=== PATIENT | male | born 1950 | race Caucasian/White ===

== ENCOUNTER 2020-12-10 07:01 | Inpatient (IN) | payer MEDICARE ==
[~2020-12-10 07:01] MED LIST: Povidone-Iodine 10% Soln 118.25 ML Bottle ONE
[2020-12-10] MEDS ORDERED: Midazolam 1 MG/ML 2 ML SDV ONE (07:23)
[2020-12-10] MEDS ORDERED: Propofol 200 MG/20 ML SDV ONE ×3 (07:23→09:59)
[2020-12-10] MEDS ORDERED: fentaNYL 100 MCG/2 ML SDV ONE (07:23)
[2020-12-10] MEDS ORDERED: Lactated Ringers 1,000 ML IV SCH (07:30)
[2020-12-10] MEDS ORDERED: ceFAZolin 2 GM in Premix Bag 1 BAG IV ONE (07:30)
[2020-12-10] MEDS: Nozin Nasal Sanitizer NASBOTH SCH ×2 (07:42→20:24)
[2020-12-10] MEDS ORDERED: Ondansetron 4 MG/2 ML SDV IVPUSH PRN (10:27)
[2020-12-10] MEDS ORDERED: Morphine 2 MG/ML SYRINGE IVPUSH PRN (10:27)
[2020-12-10] MEDS ORDERED: Acetaminophen/HYDROcodone 325-5 MG Tab PO PRN (10:27)
[2020-12-10] MEDS ORDERED: Acetaminophen 325 MG Tab PO PRN (10:27)
[2020-12-10] MEDS ORDERED: Montelukast 10 MG Tab PO PRN (10:32)
[2020-12-10] MEDS ORDERED: BUDESONIDE 3 MG PO PRN (10:32)
[2020-12-10] MEDS: Ketorolac 30 MG/ML SDV IVPUSH PRN (11:10)
[2020-12-10] MEDS: Acetaminophen/oxyCODONE 325-5 MG Tab PO PRN ×3 (11:46→20:32)
[2020-12-10] MEDS: Sodium Chloride 0.9% 1,000 ML IV SCH ×2 (12:43→20:35)
--- NOTE | 2020-12-10 14:05 | CRLCR ---
For Patients: As a result of the Cures Act, medical imaging exams and procedure reports are released immediately into your electronic medical record. You may view this report before your referring provider. If you have questions, please contact your health care provider. INDICATION: Post operative right total knee arthroplasty TECHNIQUE: Knee radiograph 2 views right COMPARISON: None FINDINGS: Bone: No acute fractures or aggressive bone lesions are identified. Joint: The patient is status post a total knee arthroplasty with patellar resurfacing. No radiographic evidence of asymmetric polyethylene wear, prosthetic loosening or infection is seen. No significant knee effusion is seen. Soft tissue: Anterior skin, subcutaneous gas and joint gas are present from recent surgery. No radiopaque foreign bodies are seen. IMPRESSION: 1. There is an unremarkable postoperative appearance of the knee arthroplasty. Dictated by: Calvin Ahumada MD @ 12/10/2020 14:05:05 (Electronically Signed)
[2020-12-10] MEDS: ceFAZolin 1 GM in Premix Bag 1 BAG IV SCH (15:06)
[2020-12-10] MEDS ORDERED: Cyclobenzaprine 10 MG Tab PO PRN (16:22)
[2020-12-10] MEDS: Docusate Sodium 100 MG Cap PO SCH (20:26)
[2020-12-10] MEDS ORDERED: Nozin Nasal Sanitizer NASBOTH SCH (21:00)
[2020-12-11] MEDS: ceFAZolin 1 GM in Premix Bag 1 BAG IV SCH ×2 (00:15→07:33)
[2020-12-11] MEDS: Acetaminophen/oxyCODONE 325-5 MG Tab PO PRN ×3 (00:22→19:14)
[2020-12-11] MEDS: Ketorolac 30 MG/ML SDV IVPUSH PRN (00:22)
[2020-12-11] MEDS: Sodium Chloride 0.9% 1,000 ML IV SCH (04:37)
[2020-12-11] MEDS ORDERED: Levothyroxine 25 MCG Tab PO SCH (07:30)
[2020-12-11] MEDS: Docusate Sodium 100 MG Cap PO SCH ×2 (08:01→20:26)
[2020-12-11] MEDS: Nozin Nasal Sanitizer NASBOTH SCH ×2 (08:04→22:48)
--- NOTE | 2020-12-11 08:08 | PCM.SURGPN ---
- General Info Date of Service: 12/11/20 Date of Surgery/Procedure: 12/10/20 POD#: 1 Post-Op Diagnosis: right knee osteoarthritis Admission Diagnosis/Problem: Knee joint operation Functional Status: Reports: Pain Controlled, Tolerating Diet, Ambulating, Urinating - Review of Systems General: Denies: Fever, Fatigue, Chills HEENT: Denies: Visual Changes Pulmonary: Denies: Shortness of Breath Cardiovascular: Denies: Chest Pain, Palpitations Gastrointestinal: Denies: Nausea, Vomiting Genitourinary: Denies: Dysuria Musculoskeletal: Reports: Leg Pain (right ), Joint Swelling (right knee ) Neurological: Reports: No Symptoms Psychiatric: Reports: No Symptoms - Patient Data Vitals - Most Recent: Last Vital Signs Temp 97.4 F 12/11/20 00:48 Pulse 74 12/11/20 00:48 Resp 18 12/11/20 00:48 BP 167/70 H 12/11/20 00:48 Pulse Ox 98 12/11/20 00:48 Weight - Most Recent: 238 lb I&O - Last 24 Hours: Intake & Output 12/10/20 12/11/20 12/11/20 22:59 06:59 14:59 Intake Total 2264 Output Total 90 Balance -90 2264 Lab Results Last 24 Hrs: Laboratory Results - last 24 hr 12/10/20 12/11/20 Range/Units 07:03 05:14 WBC 5.6 (4.5-11.0) K/uL RBC 3.64 L (4.30-5.90) M/uL Hgb 12.3 (12.0-15.0) g/dL Hct 37.7 L (40.0-54.0) % MCV 104 H (80-98) fL MCH 34 H (27-31) pg MCHC 33 (32-36) % Plt Count 168 (150-400) K/uL SARS-CoV-2 RNA ([place]) Negative (NEGATIVE) Med Orders - Current: Current Medications Acetaminophen (Acetaminophen 325 Mg Tab) 650 mg PO Q4H PRN PRN Reason: Pain/Fever Hydrocodone Bitart/Acetaminophen (Acetaminophen/Hydrocodone 325-5 Mg Tab) 1 tab PO Q4H PRN PRN Reason: Pain (mild 1-3) Bandage/Support Products (Nozin Nasal E M Assembler) 1 applic NASBOTH BID [facility] Stop: 12/16/20 21:01 Last Admin: 12/10/20 20:24 Dose: 1 applic Documented by: Cyclobenzaprine HCl (Cyclobenzaprine 10 Mg Tab) 5 mg PO Q8H PRN PRN Reason: Spasms Last Admin: 12/10/20 16:52 Dose: 5 mg Documented by: Docusate Sodium (Docusate Sodium 100 Mg Cap) 100 mg PO BID [facility] Last Admin: 12/10/20 20:26 Dose: 100 mg Documented by: Enoxaparin Sodium (Enoxaparin 30 Mg/0.3 Ml Syringe) 30 mg SUBCUT DAILY [facility] Sodium Chloride (Normal Saline) 1,000 mls @ 125 mls/hr IV ASDIRECTED [facility] Last Admin: 12/11/20 04:37 Dose: 125 mls/hr Documented by: Cefazolin Sodium/Dextrose 1 gm (/ Premix) 50 mls @ 200 mls/hr IV Q8H [facility] Stop: 12/11/20 08:14 Last Admin: 12/11/20 07:33 Dose: 200 mls/hr Documented by: Ketorolac Tromethamine (Ketorolac 30 Mg/Ml Sdv) 15 mg IVPUSH Q8H PRN PRN Reason: Breakthrough Pain Last Admin: 12/11/20 00:22 Dose: 15 mg Documented by: Levothyroxine Sodium (Levothyroxine 25 Mcg Tab) 75 mcg PO ACBREAKFAST [facility] Last Admin: 12/11/20 07:33 Dose: 75 mcg Documented by: Montelukast Sodium (Montelukast 10 Mg Tab) 10 mg PO DAILY PRN PRN Reason: Other Morphine Sulfate (Morphine 2 Mg/Ml Syringe) 1 mg IVPUSH Q1H PRN PRN Reason: Breakthrough Pain Non-Formulary Medication (Budesonide [Entocort Ec]) 3 mg PO DAILY PRN PRN Reason: Other [Symbicort 160-4.5 (Mcg Inh* Ptom) 0 puff INH BIDRT [facility] Last Admin: 12/11/20 07:38 Dose: 2 puff Documented by: Ondansetron HCl (Ondansetron 4 Mg/2 Ml Sdv) 4 mg IVPUSH Q4H PRN PRN Reason: Nausea/Vomiting Last Admin: 12/10/20 15:53 Dose: 4 mg Documented by: Oxycodone/Acetaminophen (Acetaminophen/Oxycodone 325-5 Mg Tab) 1 - 2 tab PO Q4H PRN PRN Reason: Pain Last Admin: 12/11/20 00:22 Dose: 2 tab Documented by: Pravastatin Sodium (Pravastatin 20 Mg Tab) 40 mg PO DAILY [facility] Triamterene/Hydrochlorothiazide (Hydrochlorothiazide/Triamterene 25-37.5 Tab) 1.5 each PO DAILY [facility] Discontinued Medications Fentanyl (Fentanyl 100 Mcg/2 Ml Sdv) Confirm Administered Dose 100 mcg .ROUTE .STK-MED ONE Stop: 12/10/20 07:24 Cefazolin Sodium/Dextrose 2 gm (/ Premix) 50 mls @ 100 mls/hr IV ONETIME ONE Stop: 12/10/20 07:59 Last Admin: 12/10/20 08:24 Dose: 100 mls/hr Documented by: Lactated Ringer's (Ringers, Lactated) 1,000 mls @ 75 mls/hr IV ASDIRECTED [facility] Last Admin: 12/10/20 08:02 Dose: 75 mls/hr Documented by: Midazolam HCl (Midazolam 1 Mg/Ml 2 Ml Sdv) Confirm Administered Dose 2 mg .ROUTE .STK-MED ONE Stop: 12/10/20 07:24 Povidone Iodine (Povidone-Iodine 10% Soln 118.25 Ml Bottle) Confirm Administered Dose 1 ml .ROUTE .STK-MED ONE Stop: 12/10/20 06:55 Last Admin: 12/10/20 09:27 Dose: 30 ml Documented by: Propofol (Propofol 200 Mg/20 Ml Sdv) Confirm Administered Dose 200 mg .ROUTE .STK-MED ONE Stop: 12/10/20 07:24 Propofol (Propofol 200 Mg/20 Ml Sdv) Confirm Administered Dose 200 mg .ROUTE .STK-MED ONE Stop: 12/10/20 08:28 Propofol (Propofol 200 Mg/20 Ml Sdv) Confirm Administered Dose 200 mg .ROUTE .STK-MED ONE Stop: 12/10/20 10:00 - Exam Wound/Incisions: Healing Well, Dressing Dry and Intact, No Drainage Quality Assessment: DVT Prophylaxis General: Alert, Oriented, Cooperative, No Acute Distress Extremities: Pedal Edema, Leg Pain (right ), Limited Range of Motion (of right knee due to postoperative dressing, swelling, and pain in right knee ). No: Tran's Sign Skin: Warm, Dry, Intact Psy/Mental Status: Alert, Normal Affect, Normal Mood Sepsis Event Note - Evaluation Sepsis Screening Result: No Definite Risk - Focused Exam Vital Signs: Vital Signs Temp Pulse Resp BP Pulse Ox 12/11/20 00:48 97.4 F 74 18 167/70 H 98 12/10/20 20:19 96.7 F L 65 18 152/65 H 96 - Problem List & Annotations (1) Status post right knee replacement SNOMED Code(s): 4978714631301, 883409610, 5492431744592 Code(s): Z96.651 - PRESENCE OF RIGHT ARTIFICIAL KNEE JOINT Status: Acute Current Visit: Yes - Problem List Review Problem List Initiated/Reviewed/Updated: Yes - My Orders Last 24 Hours: Active Orders 24 hr Category Date Time Status Patient Status [ADT] Routine ADT 12/10/20 10:27 Active Ambulate [RC] QID Care 12/10/20 10:27 Active Antiembolic Devices [RC] .Routine Care 12/10/20 10:27 Active Head of Bed Elevation [RC] ASDIRECTED Care 12/10/20 10:27 Active Intake and Output [RC] QSHIFT Care 12/10/20 10:27 Active May Shower [RC] ASDIRECTED Care 12/10/20 10:27 Active Neurovascular Check [RC] Q4H Care 12/10/20 10:27 Active Notify Provider Vital Signs [RC] ASDIRECTED Care 12/10/20 10:27 Active Oxygen Therapy [RC] PRN Care 12/10/20 10:27 Active Pneumonia Education [RC] UPON Care 12/10/20 10:27 Active RT Incentive Spirometry [RC] Q1HWA Care 12/10/20 10:27 Active Remove Urinary Catheter [Urinary Catheter Removal] [RC] Care 12/10/20 17:00 Active PER UNIT ROUTINE Up to Chair [RC] QID Care 12/10/20 10:27 Active VTE/DVT Education [RC] Click to Edit Care 12/10/20 10:27 Active Wound Care [RC] Q12H Care 12/10/20 10:27 Active Consult to Case Management/Hydrogen Plant Operations Manager [CONS] Cons 12/10/20 10:27 Active Routine OT Evaluation and Treatment [CONS] Routine Cons 12/10/20 10:27 Active PT Evaluation and Treatment [CONS] Routine Cons 12/10/20 10:27 Active PT Evaluation and Treatment [CONS] Routine Cons 12/10/20 10:27 Active Regular Diet [DIET] Diet 12/10/20 Lunch Active Acetaminophen [TylenoL] Med 12/10/20 10:27 Active 650 mg PO Q4H PRN Acetaminophen/HYDROcodone [Latta 325-5 MG] Med 12/10/20 10:27 Active 1 tab PO Q4H PRN Acetaminophen/oxyCODONE [Percocet 325-5 MG] Med 12/10/20 10:27 Active 1 - 2 tab PO Q4H PRN Budesonide [Entocort EC] Med 12/10/20 10:32 Active 3 mg PO DAILY PRN Budesonide/Formoterol Fumarate [Symbicort 160-4.5 Mcg Med 12/10/20 21:00 Active Inhaler] 0 puff INH BIDRT Cyclobenzaprine [Flexeril] Med 12/10/20 16:22 Active 5 mg PO Q8H PRN Docusate Sodium [Colace] Med 12/10/20 21:00 Active 100 mg PO BID Enoxaparin [Lovenox] Med 12/11/20 09:00 Active 30 mg SUBCUT DAILY HCTZ/Triamterene [Maxzide 25-37.5 MG] Med 12/11/20 09:00 Active 1.5 each PO DAILY Ketorolac [Toradol] Med 12/10/20 10:27 Active 15 mg IVPUSH Q8H PRN Levothyroxine Med 12/11/20 07:30 Active 75 mcg PO ACBREAKFAST Montelukast [Singulair] Med 12/10/20 10:32 Active 10 mg PO DAILY PRN Morphine Med 12/10/20 10:27 Active 1 mg IVPUSH Q1H PRN Nozin [ Nasal E M Assembler] Med 12/10/20 07:30 Active 1 applic NASBOTH BID Ondansetron [Zofran] Med 12/10/20 10:27 Active 4 mg IVPUSH Q4H PRN Pravastatin [Pravachol] Med 12/11/20 09:00 Active 40 mg PO DAILY Sodium Chloride 0.9% [Normal Saline] 1,000 ml Med 12/10/20 10:30 Active IV ASDIRECTED ceFAZolin [Ancef 1 GM/50 ML] 1 gm Med 12/10/20 16:00 Active Premix Bag 1 bag IV Q8H Antiembolic Hose [OM.PC] Routine Oth 12/10/20 10:27 Ordered DVT/VTE Prophylaxis Reflex [OM.PC] Routine Oth 12/10/20 10:27 Ordered Ice Therapy [OM.PC] Per Unit Routine Oth 12/10/20 10:27 Ordered Medication Continuation Instructions [OM.PC] Per Unit Oth 12/10/20 10:27 Ordered Routine Oral Care [OM.PC] Routine Oth 12/10/20 10:27 Ordered Sequential Compression Device [OM.PC] Routine Oth 12/10/20 10:27 Ordered Weight bearing status [OM.PC] Routine Oth 12/10/20 10:33 Ordered Resuscitation Status Routine Resus Stat 12/10/20 10:27 Ordered Medication Orders Acetaminophen (Acetaminophen 325 Mg Tab) 650 mg PO Q4H PRN PRN Reason: Pain/Fever Hydrocodone Bitart/Acetaminophen (Acetaminophen/Hydrocodone 325-5 Mg Tab) 1 tab PO Q4H PRN PRN Reason: Pain (mild 1-3) Bandage/Support Products (Nozin Nasal E M Assembler) 1 applic NASBOTH BID [facility] Stop: 12/16/20 21:01 Last Admin: 12/10/20 20:24 Dose: 1 applic Documented by: Admin: 12/10/20 07:42 Dose: 1 applic Documented by: GODWIN Cyclobenzaprine HCl (Cyclobenzaprine 10 Mg Tab) 5 mg PO Q8H PRN PRN Reason: Spasms Last Admin: 12/10/20 16:52 Dose: 5 mg Documented by: KRISTY Docusate Sodium (Docusate Sodium 100 Mg Cap) 100 mg PO BID [facility] Last Admin: 12/10/20 20:26 Dose: 100 mg Documented by: CHERISE Enoxaparin Sodium (Enoxaparin 30 Mg/0.3 Ml Syringe) 30 mg SUBCUT DAILY [facility] Sodium Chloride (Normal Saline) 1,000 mls @ 125 mls/hr IV ASDIRECTED [facility] Last Admin: 12/11/20 04:37 Dose: 125 mls/hr Documented by: Infusion: 12/11/20 04:35 Dose: 125 mls/hr Documented by: Admin: 12/10/20 20:35 Dose: 125 mls/hr Documented by: Infusion: 12/10/20 20:35 Dose: 125 mls/hr Documented by: Admin: 12/10/20 12:43 Dose: 125 mls/hr Documented by: PATRICA Cefazolin Sodium/Dextrose 1 gm (/ Premix) 50 mls @ 200 mls/hr IV Q8H [facility] Stop: 12/11/20 08:14 Last Admin: 12/11/20 07:33 Dose: 200 mls/hr Documented by: Infusion: 12/11/20 00:30 Dose: 200 mls/hr Documented by: Admin: 12/11/20 00:15 Dose: 200 mls/hr Documented by: Infusion: 12/10/20 15:21 Dose: 200 mls/hr Documented by: Admin: 12/10/20 15:06 Dose: 200 mls/hr Documented by: KRISTY Ketorolac Tromethamine (Ketorolac 30 Mg/Ml Sdv) 15 mg IVPUSH Q8H PRN PRN Reason: Breakthrough Pain Last Admin: 12/11/20 00:22 Dose: 15 mg Documented by: Admin: 12/10/20 11:10 Dose: 15 mg Documented by: KRISTY Levothyroxine Sodium (Levothyroxine 25 Mcg Tab) 75 mcg PO ACBREAKFAST [facility] Last Admin: 12/11/20 07:33 Dose: 75 mcg Documented by: MARCELO Montelukast Sodium (Montelukast 10 Mg Tab) 10 mg PO DAILY PRN PRN Reason: Other Morphine Sulfate (Morphine 2 Mg/Ml Syringe) 1 mg IVPUSH Q1H PRN PRN Reason: Breakthrough Pain Non-Formulary Medication (Budesonide [Entocort Ec]) 3 mg PO DAILY PRN PRN Reason: Other [Symbicort 160-4.5 (Mcg Inh* Ptom) 0 puff INH BIDRT [facility] Last Admin: 12/11/20 07:38 Dose: 2 puff Documented by: Admin: 12/10/20 20:25 Dose: 2 puff Documented by: CHERISE Ondansetron HCl (Ondansetron 4 Mg/2 Ml Sdv) 4 mg IVPUSH Q4H PRN PRN Reason: Nausea/Vomiting Last Admin: 12/10/20 15:53 Dose: 4 mg Documented by: KRISTY Oxycodone/Acetaminophen (Acetaminophen/Oxycodone 325-5 Mg Tab) 1 - 2 tab PO Q4H PRN PRN Reason: Pain Last Admin: 12/11/20 00:22 Dose: 2 tab Documented by: Admin: 12/10/20 20:32 Dose: 2 tab Documented by: Admin: 12/10/20 15:52 Dose: 2 tab Documented by: Admin: 12/10/20 11:46 Dose: 2 tab Documented by: KRISTY Pravastatin Sodium (Pravastatin 20 Mg Tab) 40 mg PO DAILY [facility] Triamterene/Hydrochlorothiazide (Hydrochlorothiazide/Triamterene 25-37.5 Tab) 1.5 each PO DAILY [facility] - Assessment Assessment (Free Text/Narrative):: Patient is a pleasant 70-year-old male, status post right total knee arthroplasty, postop day #1. Patient tolerated surgery very well with no complications. No acute events overnight. Patient had one episode of orthostatic hypotension following surgery yesterday when standing with physical therapy. Patient became lightheaded and nauseous; physical therapist assisted patient back into bed and symptoms resolved with improvements in blood pressure. Since this episode, patient has been hypertensive. Has not taken antihypertensive medications since prior to surgery. Patient denied any further episodes of lightheadedness. Also denied any further nausea or emesis. All other vitals are within normal limits. Patient denied subjective fever, chills, shortness of breath, chest pain, nor palpitations this morning. POD#1 HgB was within normal limits at 12.3. Pain has been well controlled thus far with PO Percocet and IV Toradol for breakthrough pain. Patient endorsed he slept through most of the night without disruption from right knee pain. Patient has been tolerating regular diet well without nausea or emesis. Worked with physical therapy yesterday, transferred from bed to chair. Ambulated within room with FWW and x1 assist to bathroom twice. Ambulation distance limited yesterday due to orthostatic hypotensive episode, but notes pain was fairly well controlled with weight bearing. Had complained of quadriceps musculoskeletal spasms following PT session; Flexeril was administered and intensity of spasms reduced. Denied paresthesias to RLE. Denied calf pain. Did have scant amount of blood in urine catheter following surgery. His olivas catheter was removed yesterday afternoon. Patient denied any dysuria. No h ematuria noted with urination since catheter was removed. Plan: * Continue with PT and OT services daily while in the hospital to progress functional mobility of right lower extremity. * Continue with current pain regimen; will need to have pain controlled with oral medications for discharge to home. * Continue with 30 mg Lovenox subcutaneous daily for chemical DVT/VTE p rophylaxis and bilateral LE SCDs for mechanical prophylaxis. Will transition to Aspirin therapy upon discharge. * Discontinue IV maintenance fluids. * Continue to monitor vitals q4 hrs. Resume home antihypertensive medications. * Anticipate dressing change this afternoon or POD#2 by orthopedic provider, pending when patient will discharge. * Anticipate discharge to home when medically stable and functional mobility of RLE improves. Outpatient PT to be arranged upon discharge.
[2020-12-11] MEDS ORDERED: Enoxaparin 30 MG/0.3 ML Syringe SUBCUT SCH (09:00)
[2020-12-11] MEDS ORDERED: Hydrochlorothiazide/Triamterene 25-37.5 Tab PO SCH (09:00)
[2020-12-11] MEDS ORDERED: Pravastatin 20 MG Tab PO SCH (09:00)
[2020-12-12] MEDS: Acetaminophen/oxyCODONE 325-5 MG Tab PO PRN ×2 (03:19→07:19)
--- NOTE | 2020-12-12 07:35 | PCM.DCSUM1 ---
Discharge Summary - Hospital Course Brief History: Kevin 70 y/o male with history of chronic right knee pain, symptoms refractory to conservative management, elected to undergo right total knee arthroplasty. Underwent surgery on 12/10/20. Tolerated surgery well with no complications. No acute events during hospitalization. Diagnosis: Stroke: No Modified Luis Scale: No Symptoms at All Modified Luis Scale Score: 0 - Discharge Data Discharge Date: 12/12/20 Discharge Disposition: Home, Self-Care 01 Condition: Good - Referral to Home Health Date of Face to Face Encounter: 12/12/20 Reason for Homebound Status: motivated to go home, independent with ADLs, ambulatory with walker Primary Care Physician: PCP Unknown - Discharge Diagnosis/Problem(s) (1) Status post right knee replacement SNOMED Code(s): 8886226289359, [id number], [id number] ICD Code: Z96.651 - PRESENCE OF RIGHT ARTIFICIAL KNEE JOINT Status: Acute Current Visit: Yes - Patient Summary/Data Operative Procedure(s) Performed: right knee total arthroplasty Consults: Consultations 12/10/20 10:27 Consult to Case Management/Graphic Engineer [CONS] Routine Comment: Physician Instructions: Service(s) to be Consulted: Case Management Reason for Consult: Plan for Discharge Special Instructions: anticipate d/c to home with outpatient PT. Patient requesting outpatient PT with Iss OT Evaluation and Treatment [CONS] Routine Please Evaluate and Treat. OT Reason for Consult: ADL's Special Instructions: s/p RTKA WBAT, assist with leg equipment service engineer/adaptive equipment as needed for ADLS This query below is only for informational purposes and is not editable. PT Evaluation and Treatment [CONS] Routine Please Evaluate and Treat. PT Reason for Consult: Post op Ortho Surgery Special Instructions: s/p R TKA. WBAT. progress motion and strengthening to R LE as tolerated This query below is only for informational purposes and is not editable. PT Evaluation and Treatment [CONS] Routine Please Evaluate and Treat. PT Reason for Consult: Post op Ortho Surgery Knee Pending Discharge: Yes, 1- 2 days Special Instructions: Schedule first outpatient PT appointment in 3-5 day post discharge. Patient has requested [facility] for therapist This query below is only for informational purposes and is not editable. Hospital Course: Patient is a kevin 70 y/o male, status post right total knee arthroplasty, DOS: 12/10/20. Patient tolerated surgery well with no complications. Patient had no acute events during hospitalization. POD#1 HgB within normal limits at 12.3. Patient had an isolated orthostatic hypotensive episode, followed by intermittent hypertensive readings. Home antihypertensive medications resumed on POD#1 and blood pressures improved. Has otherwise remained hemodynamically stable throughout stay. Patient worked with PT and OT daily throughout hospital stay. Did have an episode of orthostatic hypotension the afternoon of surgery upon standing with physical therapy. Aside from this isolated incident, patient ambulated without lightheadedness or dizziness. Denied subjective fevers, chills, chest pain, palpitations, nor dyspnea throughout stay. Patient progressed nicely with ambulation abilities, walking up to 115 feet with FWW and SBA. Able to use leg equipment service engineer and independently transfer out of bed to chair. Demonstrated independence with ADLs. Pain has been well controlled with oral Percocet. Denied nausea or emesis with this medication. Has tolerated regular diet well. Did have quadriceps spasms the evening of surgery, prn flexeril was utilized. Has denied any further muscle spasms. Denied paresthesias to right lower extremity. Denied calf pain. Did have scant amount of blood in catheter the evening of surgery. Catheter was removed that evening. Patient denied dysuria, but did have mild hematuria throughout POD#1. IV maintenance fluids were discontinued on POD#1. Dressing changed on POD#1 and #2. Was on 30 mg Lovenox subcutaneous daily for chemical DVT/VTE prophylaxis w [facility] inpatient. Patient demonstrated improved functional mobility of right lower extremity throughout stay and was medically stable at time of discharge. - Patient Instructions Diet: Usual Diet as Tolerated Activity: Apply Ice, Full Weight Bearing Driving: Do Not Drive Showering/Bathing: May Shower Wound/Incision Care: Keep Operative Site/Wound Site Clean and Dry Notify Provider of: Fever, Increased Pain, Swelling and Redness, Drainage - Discharge Plan *PRESCRIPTION DRUG MONITORING PROGRAM REVIEWED*: Yes *COPY OF PRESCRIPTION DRUG MONITORING REPORT IN PATIENT GEO: Not Applicable Prescriptions/Med Rec: Acetaminophen/oxyCODONE [Percocet 325-5 MG] 1 - 2 each PO Q6H PRN #40 tab PRN Reason: Pain Home Medications: Home Meds Budesonide [Entocort EC] 3 mg PO DAILY PRN 11/24/20 [History] HCTZ/Triamterene [Maxzide 25-37.5 MG] 1.5 tab PO DAILY 11/24/20 [History] Levothyroxine Sodium [Synthroid] 75 mcg PO ACBREAKFAST 11/24/20 [History] Montelukast [Singulair] 10 mg PO DAILY PRN 11/24/20 [History] Pravastatin [Pravachol] 40 mg PO DAILY 11/24/20 [History] Budesonide/Formoterol Fumarate [Symbicort 160-4.5 Mcg Inhaler] 2 puff INH BID 11/25/20 [History] Acetaminophen/oxyCODONE [Percocet 325-5 MG] 1 - 2 each PO Q6H PRN #40 tab 12/12/20 [Rx] Oxygen Therapy Mode: Room Air Referrals: Balaji Lezama PA [Ordering Only Provider] - 12/23/20 11:00 am (Please arrive 15 minutes early to register for your appointment.) Mallory Moran, PT [Physical Therapist] - 12/15/20 2:00 pm (Please arrive 15 minutes early to register for your appointment.) - Discharge Summary/Plan Comment DC Time >30 min.: No Total # of Minutes for Discharge Time: 20 Discharge Summary/Plan Comment: -Discharge to home today with outpatient physical therapy. -Prescription sent for pain control: 5mg-325mg Percocet, 1-2 tabs PO q6 hrs prn for pain. -Encouraged continuation of stool softener while on opioid pain medication. -Educated on warning signs of DVT/VTE and SSI; any concerns, should contact the clinic or visit local ER. -Educated to take 1 aspirin (81 mg or 325 mg) BID for DVT/VTE prophylaxis. -Continue with Nozin spray BID. -Encouraged to monitor blood pressure at home; if readings are elevated, should follow up with his PCP. -May shower; leave Steristrips on and let water run over the top. They will fall off in 5-7 days. Do not vigorously scrub incision, no submerging incision in bath water. Do not need to place dressing over incision, but may choose to do so if Steristrips are catching on clothing. -Follow up with orthopedics in 2 weeks; contact clinic with any concerns or questions that arise prior to scheduled apt. - General Info Date of Service: 12/12/20 Admission Dx/Problem (Free Text: right knee joint operation Functional Status: Reports: Pain Controlled, Tolerating Diet, Ambulating (with FWW ), Urinating - Review of Systems General: Denies: Fever, Fatigue, Malaise, Chills Pulmonary: Denies: Shortness of Breath Cardiovascular: Denies: Chest Pain, Palpitations Gastrointestinal: Denies: Nausea, Vomiting Genitourinary: Denies: Dysuria Musculoskeletal: Reports: Leg Pain (right ), Joint Pain (right knee ), Joint Swelling (right knee ) Skin: Reports: Bruising Neurological: Reports: No Symptoms Psychiatric: Reports: No Symptoms - Patient Data Vitals - Most Recent: Last Vital Signs Temp 96.3 F L 12/12/20 03:18 Pulse 60 12/12/20 03:18 Resp 16 12/12/20 03:18 BP 138/48 L 12/12/20 03:18 Pulse Ox 97 12/12/20 03:18 Weight - Most Recent: 238 lb I&O - Last 24 hours: Intake & Output 12/11/20 12/12/20 12/12/20 22:59 06:59 14:59 Output Total 500 Balance -500 Med Orders - Current: Current Medications Acetaminophen (Acetaminophen 325 Mg Tab) 650 mg PO Q4H PRN PRN Reason: Pain/Fever Hydrocodone Bitart/Acetaminophen (Acetaminophen/Hydrocodone 325-5 Mg Tab) 1 tab PO Q4H PRN PRN Reason: Pain (mild 1-3) Bandage/Support Products (Nozin Nasal Corporate Sales Trainer) 1 applic NASBOTH BID [facility] Stop: 12/16/20 21:01 Last Admin: 12/11/20 22:48 Dose: 1 applic Documented by: Cyclobenzaprine HCl (Cyclobenzaprine 10 Mg Tab) 5 mg PO Q8H PRN PRN Reason: Spasms Last Admin: 12/10/20 16:52 Dose: 5 mg Documented by: Docusate Sodium (Docusate Sodium 100 Mg Cap) 100 mg PO BID [facility] Last Admin: 12/11/20 20:26 Dose: 100 mg Documented by: Enoxaparin Sodium (Enoxaparin 30 Mg/0.3 Ml Syringe) 30 mg SUBCUT DAILY [facility] Last Admin: 12/11/20 08:01 Dose: 30 mg Documented by: Sodium Chloride (Normal Saline) 1,000 mls @ 125 mls/hr IV ASDIRECTED [facility] Last Admin: 12/11/20 04:37 Dose: 125 mls/hr Documented by: Ketorolac Tromethamine (Ketorolac 30 Mg/Ml Sdv) 15 mg IVPUSH Q8H PRN PRN Reason: Breakthrough Pain Last Admin: 12/11/20 00:22 Dose: 15 mg Documented by: Levothyroxine Sodium (Levothyroxine 25 Mcg Tab) 75 mcg PO ACBREAKFAST [facility] Last Admin: 12/11/20 07:33 Dose: 75 mcg Documented by: Montelukast Sodium (Montelukast 10 Mg Tab) 10 mg PO DAILY PRN PRN Reason: Other Morphine Sulfate (Morphine 2 Mg/Ml Syringe) 1 mg IVPUSH Q1H PRN PRN Reason: Breakthrough Pain Non-Formulary Medication (Budesonide [Entocort Ec]) 3 mg PO DAILY PRN PRN Reason: Other [Symbicort 160-4.5 (Mcg Inh* Ptom) 0 puff INH BIDRT [facility] Last Admin: 12/12/20 07:20 Dose: 2 puff Documented by: Ondansetron HCl (Ondansetron 4 Mg/2 Ml Sdv) 4 mg IVPUSH Q4H PRN PRN Reason: Nausea/Vomiting Last Admin: 12/10/20 15:53 Dose: 4 mg Documented by: Oxycodone/Acetaminophen (Acetaminophen/Oxycodone 325-5 Mg Tab) 1 - 2 tab PO Q4H PRN PRN Reason: Pain Last Admin: 12/12/20 07:19 Dose: 2 tab Documented by: Pravastatin Sodium (Pravastatin 20 Mg Tab) 40 mg PO DAILY [facility] Last Admin: 12/11/20 08:01 Dose: 40 mg Documented by: Triamterene/Hydrochlorothiazide (Hydrochlorothiazide/Triamterene 25-37.5 Tab) 1.5 each PO DAILY [facility] Last Admin: 12/11/20 08:01 Dose: 1.5 each Documented by: Discontinued Medications Fentanyl (Fentanyl 100 Mcg/2 Ml Sdv) Confirm Administered Dose 100 mcg .ROUTE .STK-MED ONE Stop: 12/10/20 07:24 Cefazolin Sodium/Dextrose 2 gm (/ Premix) 50 mls @ 100 mls/hr IV ONETIME ONE Stop: 12/10/20 07:59 Last Admin: 12/10/20 08:24 Dose: 100 mls/hr Documented by: Lactated Ringer's (Ringers, Lactated) 1,000 mls @ 75 mls/hr IV ASDIRECTED [facility] Last Admin: 12/10/20 08:02 Dose: 75 mls/hr Documented by: Cefazolin Sodium/Dextrose 1 gm (/ Premix) 50 mls @ 200 mls/hr IV Q8H [facility] Stop: 12/11/20 08:14 Last Admin: 12/11/20 07:33 Dose: 200 mls/hr Documented by: Midazolam HCl (Midazolam 1 Mg/Ml 2 Ml Sdv) Confirm Administered Dose 2 mg .ROUTE .STK-MED ONE Stop: 12/10/20 07:24 Povidone Iodine (Povidone-Iodine 10% Soln 118.25 Ml Bottle) Confirm Administered Dose 1 ml .ROUTE .STK-MED ONE Stop: 12/10/20 06:55 Last Admin: 12/10/20 09:27 Dose: 30 ml Documented by: Propofol (Propofol 200 Mg/20 Ml Sdv) Confirm Administered Dose 200 mg .ROUTE .STK-MED ONE Stop: 12/10/20 07:24 Propofol (Propofol 200 Mg/20 Ml Sdv) Confirm Administered Dose 200 mg .ROUTE .STK-MED ONE Stop: 12/10/20 08:28 Propofol (Propofol 200 Mg/20 Ml Sdv) Confirm Administered Dose 200 mg .ROUTE .STK-MED ONE Stop: 12/10/20 10:00 - Exam Quality Assessment: Reports: DVT Prophylaxis General: Reports: Alert, Oriented, Cooperative, No Acute Distress Extremities: Normal Capillary Refill, Pedal Edema, Joint Swelling (right knee ), Leg Pain (right ), Limited Range of Motion (at right knee from postoperative swelling and pain ), Other (tibial pulse, 2+. Dorsiflexion: 4+/5. Plantar flexion: 5/5. ). No: Tran's Sign Skin: Reports: Dry, Intact, Ecchymosis Wound/Incisions: Reports: Healing Well, Dressing Dry and Intact, No Drainage, Other (Incision approximated, steristrips with dried drainage intact above. No surrounding erythema nor active drainage. ) Neurological: Reports: No New Focal Deficit Psy/Mental Status: Reports: Alert, Normal Affect, Normal Mood
--- NOTE | 2020-12-18 12:14 | OR ---
DATE OF PROCEDURE: 12/10/2020 SURGEON: Suman Gorman MD PREOPERATIVE DIAGNOSIS: Osteoarthritis, right knee. POSTOPERATIVE DIAGNOSIS: Severe osteoarthritis, right knee. PROCEDURE: Right total knee arthroplasty utilizing Esthela Persona components with a size 10 femur, G tibia, 11 mm polyethylene, and 38 mm patella. TURNAROUND ENGINEER: RIGOBERTO Mosley ANESTHESIA: Spinal with sedation. INDICATIONS: Lavell is a pleasant 70-year-old gentleman with history of progressive pain in his right knee for the past year. Examination and imaging are consistent with severe osteoarthritis with complete joint space collapse medially. He now presents for right total knee arthroplasty. Risks, benefits, potential complications of the procedure were discussed. PROCEDURE IN DETAIL: After adequate anesthesia was obtained, the patient was placed supine with a tourniquet about the right upper thigh. Right leg was prepped and draped in a sterile fashion. Leg was exsanguinated and tourniquet inflated to 300 mmHg pressure. A midline incision was made and carried down through the subcutaneous tissues. A medial parapatellar arthrotomy was performed. A moderate effusion is present. Portion of the fat pad and synovium was excised for better visualization. The capsule was released medially. Patella was partially everted, held with clamps, and the posterior aspect of the patella was resected with an oscillating saw. The knee was flexed, and the intramedullary canal of the femur was drilled, and the intramedullary guide was placed. Distal femoral resection was made with an oscillating saw. Attention was turned to the tibia where the extramedullary tibial guide was placed. This was aligned and secured, and the proximal tibia was resected. The remaining medial and lateral menisci were excised. Knee was flexed and attention returned to the femur, which was measured at a size 10 femoral component. The cutting jig was secured to the distal femur and remaining femoral cuts were made including an inner condylar cut for a posterior cruciate-sacrificing component. Femoral trial was placed with excellent fit. The tibia sized to a #10 component. Tibial plate was pinned in position and the tibial preparation completed with a reamer and punch. A trial reduction was then done with a 10 and 11 mm polyethylene. The 11 mm provided best balance in flexion and extension with full extension. The patella was resurfaced with a 38 mm button, which tracked very well. The trial components were removed. The knee was thoroughly irrigated with pulse lavage. Bone surfaces were dried. Components were cemented in place. Excess cement was removed and the knee was held in full extension with the trial polyethylene as the cement cured. Knee was again taken through range of motion, balance in flexion and extension was assessed and the 11 mm polyethylene is selected. The knee was irrigated. Final polyethylene was snapped into position. The knee was irrigated once again with pulse lavage followed by a dilute Betadine solution which was left in place for 2-1/2 minutes and then irrigated with pulse lavage. The capsule was closed with #2 Ethibond in a running locking fashion. The skin was closed with 2-0 Vicryl and a running 3-0 Monocryl. Steri-Strips were applied. Sterile dressing was placed with a light compressive dressing. The patient tolerated procedure well. There were no complications. Taken from the operating room in stable condition. Suman Gorman MD /[id number]
== END 2020-12-12 08:00 | disposition home or self-care (01) | DRG 470 ==
LOC: JP.SDS 07:01 → JP.MS 10:27 → JP.SDS 12-11 12:02 → JP.MS 12-11 12:02
PROVIDERS: ADMIT Specialist; ATTEND Specialist
PROC: 0SRC0J9 Replacement of Right Knee Joint with Synthetic Substitute, Cemented, Open Approach (ICD-10-PCS; principal; 2020-12-10)
DX: M17.11 Unilateral primary osteoarthritis, right knee (principal); E78.5 Hyperlipidemia, unspecified; K21.9 Gastro-esophageal reflux disease without esophagitis; J44.9 Chronic obstructive pulmonary disease, unspecified; E03.9 Hypothyroidism, unspecified; I10 Essential (primary) hypertension; Z20.822 Contact with and (suspected) exposure to COVID-19; I95.1 Orthostatic hypotension; R31.9 Hematuria, unspecified; Z79.890 Hormone replacement therapy; Z79.899 Other long term (current) drug therapy
CPT/HCPCS: 36415; 73560-RT; 85027; 94640; 97110-GP; 97116-GP; 97162-GP; 97165-GO; 97530-GP; 97535-GO; 97535-GP; A9270-GY; C1713; C1776; J0690; J1650; J1885; J2250; J2405; J2704; J3010; J7030; J7120; U0002

== ENCOUNTER 2021-08-24 05:47 | Day surgery (SDC) | payer MEDICARE ==
[2021-08-24] MEDS ORDERED: Nozin Nasal Sanitizer NASBOTH SCH (06:30)
[2021-08-24] MEDS ORDERED: Lactated Ringers 1,000 ML IV SCH (06:30)
[2021-08-24] MEDS ORDERED: Bupivacaine 0.5% 50 ML MDV ONE (06:43)
[2021-08-24] MEDS ORDERED: fentaNYL 250 MCG/5 ML SDV ONE (07:20)
[2021-08-24] MEDS ORDERED: Glycopyrrolate 0.2 MG/ML 5 ML MDV ONE (07:21)
[2021-08-24] MEDS ORDERED: Dexamethasone 4 MG/ML SDV ONE (07:21)
[2021-08-24] MEDS ORDERED: Ondansetron 4 MG/2 ML SDV ONE (07:21)
[2021-08-24] MEDS ORDERED: Propofol 200 MG/20 ML SDV ONE (07:21)
[2021-08-24] MEDS ORDERED: Neostigmine Methylsulfate 1 MG/ML 5 ML Syringe ONE (07:21)
[2021-08-24] MEDS ORDERED: Rocuronium 50 MG/5 ML Vial ONE (07:21)
[2021-08-24] MEDS ORDERED: Succinylcholine 200 MG/10 ML MDV ONE (07:22)
[2021-08-24] MEDS ORDERED: Bupivacaine 0.5% 30 ML SDV ONE (07:23)
[2021-08-24] MEDS ORDERED: ceFAZolin 2 GM in Premix Bag 1 BAG IV ONE (07:30)
[2021-08-24] MEDS ORDERED: Labetalol 20 MG/4 ML Syringe ONE (08:40)
[2021-08-24] MEDS ORDERED: traMADol 50 MG Tab PO PRN (10:24)
[2021-08-24] MEDS ORDERED: oxyCODONE 5 MG Tab PO PRN (10:24)
[2021-08-24] MEDS ORDERED: HYDROmorphone 0.5 MG/0.5 ML Syringe IVPUSH PRN (10:24)
[2021-08-24] MEDS ORDERED: Ondansetron 4 MG/2 ML SDV IVPUSH PRN (10:24)
[2021-08-24] MEDS ORDERED: Sodium Chloride 0.9% 1,000 ML IV SCH (10:30)
[2021-08-24] MEDS: Acetaminophen 500 MG Tab PO SCH ×2 (11:24→17:10)
[2021-08-24] MEDS: oxyCODONE 5 MG Tab PO PRN ×2 (11:25→21:10)
[2021-08-24] MEDS: ceFAZolin 1 GM in Premix Bag 1 BAG IV SCH ×2 (14:06→21:25)
[2021-08-24] MEDS: Carvedilol 3.125 MG Tab PO SCH ×2 (17:53→21:03)
[2021-08-24] MEDS ORDERED: Cetirizine 10 MG Tab PO SCH (21:00)
[2021-08-24] MEDS: Ketorolac 30 MG/ML SDV IVPUSH SCH (21:04)
[2021-08-24] MEDS: Nozin Nasal Sanitizer NASBOTH SCH (21:12)
[2021-08-24] MEDS: Docusate Sodium 100 MG Cap PO SCH (21:58)
[2021-08-24] MEDS: Formoterol/Mometasone 200-5 MCG 8.8 GM Inhaler IH SCH (21:58)
[2021-08-25] MEDS: Acetaminophen 500 MG Tab PO SCH ×3 (01:18→11:57)
[2021-08-25] MEDS: ceFAZolin 1 GM in Premix Bag 1 BAG IV SCH (05:50)
[2021-08-25] MEDS: Ketorolac 30 MG/ML SDV IVPUSH SCH (05:50)
[2021-08-25] MEDS: Formoterol/Mometasone 200-5 MCG 8.8 GM Inhaler IH SCH (07:29)
[2021-08-25] MEDS ORDERED: Levothyroxine 88 MCG Tab PO SCH (07:30)
[2021-08-25] MEDS: Carvedilol 3.125 MG Tab PO SCH (08:52)
[2021-08-25] MEDS: Docusate Sodium 100 MG Cap PO SCH (08:52)
[2021-08-25] MEDS: Nozin Nasal Sanitizer NASBOTH SCH (08:54)
[2021-08-25] MEDS ORDERED: Pravastatin 20 MG Tab PO SCH (09:00)
[2021-08-25] MEDS ORDERED: Hydrochlorothiazide/Triamterene 25-37.5 Tab PO SCH (09:00)
[2021-08-25] MEDS ORDERED: Loratadine 10 MG Tab PO SCH (09:00)
[2021-08-25] MEDS ORDERED: Montelukast 10 MG Tab PO SCH (09:00)
== END 2021-08-25 12:46 | disposition home or self-care (01) ==
LOC: JP.SDS 05:47 → JP.MS 10:24 → JP.SDS 08-25 12:46
PROVIDERS: ATTEND Specialist
DX: M19.011 Primary osteoarthritis, right shoulder (principal); J44.9 Chronic obstructive pulmonary disease, unspecified; E03.9 Hypothyroidism, unspecified; K21.9 Gastro-esophageal reflux disease without esophagitis; I11.0 Hypertensive heart disease with heart failure; E78.5 Hyperlipidemia, unspecified; I50.9 Heart failure, unspecified; Z95.0 Presence of cardiac pacemaker; Z79.890 Hormone replacement therapy; Z87.891 Personal history of nicotine dependence; Z79.51 Long term (current) use of inhaled steroids; Z79.899 Other long term (current) drug therapy; Z86.79 Personal history of other diseases of the circulatory system
CPT/HCPCS: 36415; 73020-26-RT; 73020-RT; 85027; 97110-GP; 97161-GP; 97165-GO; 97535-GP; A9270-GY; C1713; C1776; J0330; J0690; J1100; J1885; J2405; J2704; J2710; J3010; J3490; J7030; J7120

== ENCOUNTER 2022-09-17 06:49 | Day surgery (SDC) | payer MEDICARE ==
[~2022-09-17 06:49] MED LIST changes: +Lidocaine 1% with EPINEPHrine 1:100,000 50 ML MDV ONE; -Povidone-Iodine 10% Soln 118.25 ML Bottle ONE
[2022-09-17] MEDS ORDERED: Propofol 200 MG/20 ML SDV ONE (07:32)
[2022-09-17] MEDS ORDERED: Midazolam 1 MG/ML 2 ML SDV ONE (07:32)
[2022-09-17] MEDS ORDERED: fentaNYL 100 MCG/2 ML SDV ONE (07:32)
[2022-09-17] MEDS ORDERED: Sodium Chloride 0.9% 1,000 ML IV SCH (08:00)
[2022-09-17] MEDS ORDERED: Lidocaine 1% w/EPINEPHrine 50 ML, Sodium Bicarbonate 5 MEQ in Sodium Chloride 0.9% 950 ML INJECT ONE (08:30)
== END 2022-09-17 10:15 | disposition home or self-care (01) ==
LOC: JP.SDS 06:49
PROVIDERS: ATTEND Surgery
DX: I87.2 Venous insufficiency (chronic) (peripheral) (principal); G47.33 Obstructive sleep apnea (adult) (pediatric); J44.9 Chronic obstructive pulmonary disease, unspecified; I10 Essential (primary) hypertension; E03.9 Hypothyroidism, unspecified; E66.9 Obesity, unspecified; Z87.891 Personal history of nicotine dependence; Z88.8 Allergy status to other drugs, medicaments and biological substances
CPT/HCPCS: 36475; 76998; J1642; J2250; J2704; J3010; J7030; J3490

== ENCOUNTER 2023-10-10 11:26 | Emergency (ER) | payer MEDICARE, OTHER | END 2023-10-10 13:36 | disposition home or self-care (01) | LOC: JP.ED 11:26 | DX: M19.012 Primary osteoarthritis, left shoulder (principal); I10 Essential (primary) hypertension; E78.00 Pure hypercholesterolemia, unspecified; J44.9 Chronic obstructive pulmonary disease, unspecified; E03.9 Hypothyroidism, unspecified; F17.210 Nicotine dependence, cigarettes, uncomplicated; Z79.899 Other long term (current) drug therapy; Z79.890 Hormone replacement therapy; Z88.8 Allergy status to other drugs, medicaments and biological substances | CPT/HCPCS: 73030-26-LT; 73030-LT; 99283 ==